=== PATIENT | male | born 1985 | race African-American/Black ===

== ENCOUNTER 2021-03-05 08:22 | Emergency (ER) | payer OTHER ==
[2021-03-05 08:42] VITALS: BMI 34.4
[2021-03-05] MEDS ORDERED: FAMOTIDINE 20 MG/50 ML IVPB 20 MG/50 ML MG IVPB ONE ×2 (08:53→09:04)
[2021-03-05] MEDS ORDERED: ACETAMINOPHEN 1000 MG/100 ML VIAL IVPB ONE (08:53)
[2021-03-05] MEDS ORDERED: MAG HYDROX/AL HYDROX/SIMETH -MYLANTA- ORAL SUSPENSION PO ONE (08:53)
[2021-03-05] MEDS ORDERED: SODIUM CHLORIDE 0.9% 1000 ML INFUS.BAG IV ONE ×2 (08:53→09:38)
[2021-03-05] MEDS ORDERED: ACETAMINOPHEN INJECTION 100 ML IVPB ONE (09:04)
[2021-03-05] MEDS ORDERED: MAG HYDROX/AL HYDROX/SIMETH 30 ML UNIT-DOSE CUP ONE (09:04)
[2021-03-05 09:36] LABS: BASO % 5.1 % (0-2.0); EOS % 0.6 % (0-4.5); HEMOGLOBIN 15.8 GM/dL (11.7-16.9); LYMPH % 21.4 % (8-40); MCH 30.3 pg (25.7-33.7); MCHC 34.3 g/dl (32.0-35.9); MEAN CELL VOLUME 88.4 fl (80-96); MEAN PLT VOLUME 8.8 fl (7.5-11.1); MONO % 6.8 % (3.8-10.2); NEUT % 66.1 % (42.8-82.8); PLATELET COUNT 233 10^3/uL (134-434); RDW 14.3 % (11.9-15.9)
[2021-03-05] MEDS ORDERED: ONDANSETRON 4 MG/2 ML VIAL IVPUSH ONE (09:37)
[2021-03-05] MEDS ORDERED: ONDANSETRON 4 MG/2 ML VIAL ONE (09:39)
[2021-03-05 09:46] LABS: INR 1.26 (0.83-1.09); PROTHROMBIN TIME (PATIENT) 14.1 SEC (9.7-13.0)
[2021-03-05 09:48] LABS: ACTIVATED PTT 31.3 SECONDS (25.2-36.5)
[2021-03-05 09:51] LABS: CHLORIDE 99 mmol/L (98-107); SODIUM 135 mmol/L (136-145)
[2021-03-05 09:53] LABS: ALBUMIN 4.3 g/dl (3.4-5.0); ANION GAP 9 MMOL/L (8-16); CALCIUM 8.5 mg/dL (8.5-10.1); CO2 27 mmol/L (21-32); GLUCOSE,RANDOM 175 mg/dL (74-106); LIPASE 148 U/L (73-393)
[2021-03-05 09:54] LABS: BLOOD UREA NITROGEN 13.7 mg/dL (7-18)
[2021-03-05 09:56] LABS: CREATININE 1.1 mg/dL (0.55-1.3); SGPT/ALT 155 U/L (13-61)
[2021-03-05 09:57] LABS: SGOT/AST 181 U/L (15-37); TOT PROT 8.3 g/dl (6.4-8.2)
[2021-03-05 09:59] LABS: ALK PHOS 130 U/L (45-117)
[2021-03-05 11:50] LABS: ANISOCYTOSIS 0; HELMET CELLS 0; HOWELL-JOLLY BODIES 0; MACROCYTOSIS 0; OVALOCYTE 0; PLATELET ESTIMATE NORMAL; ROULEAU 0; SICKELED CELLS 0; TARGET CELLS 0; TEAR DROP CELLS 0; TOXIC GRANULATION 0
[2021-03-05 14:22] VITALS: BP 130/88; PULSE 87; TEMP 98.9
== END 2021-03-05 14:29 | disposition home or self-care (01) ==
LOC: JER 08:22
PROC: 3E0333Z Introduction of Anti-inflammatory into Peripheral Vein, Percutaneous Approach (ICD-10-PCS; principal; 2021-03-05)
PROC: 3E033GC Introduction of Other Therapeutic Substance into Peripheral Vein, Percutaneous Approach (ICD-10-PCS; 2021-03-05)
PROC: 3E033GC Introduction of Other Therapeutic Substance into Peripheral Vein, Percutaneous Approach (ICD-10-PCS; 2021-03-05)
DX: K62.5 Hemorrhage of anus and rectum (principal); K64.9 Unspecified hemorrhoids; R10.9 Unspecified abdominal pain; R94.5 Abnormal results of liver function studies
CPT/HCPCS: 36415; 71045-TC-FY; 76705-TC; 80053; 80307; 82272; 83690; 84484; 85025; 85610; 85730; 86708; 86803; 86850; 86900; 86901; 87340; 87517; 93005; 93010; 99285-25; J0131

== ENCOUNTER 2021-06-17 05:11 | Emergency (ER) | payer OTHER ==
[2021-06-17 05:20] VITALS: BMI 36.0
[2021-06-17] MEDS ORDERED: SODIUM CHLORIDE 0.9% 500 ML INFUS.BAG IV ONE (05:36)
[2021-06-17] MEDS ORDERED: FAMOTIDINE 20 MG/50 ML IVPB 20 MG/50 ML MG IVPB ONE ×2 (05:36→05:43)
[2021-06-17] MEDS ORDERED: ONDANSETRON 4 MG/2 ML VIAL IVPUSH ONE (05:36)
[2021-06-17] MEDS ORDERED: ONDANSETRON 4 MG/2 ML VIAL ONE (05:42)
[2021-06-17 06:36] VITALS: TEMP 99.4
[2021-06-17] MEDS ORDERED: MAG HYDROX/AL HYDROX/SIMETH 30 ML UNIT-DOSE CUP PO ONE (06:52)
[2021-06-17 06:57] LABS: BASO % 3.2 % (0-2.0); EOS % 0.9 % (0-4.5); HEMATOCRIT 43.9 % (35.4-49); HEMOGLOBIN 14.7 GM/dL (11.7-16.9); LYMPH % 35.1 % (8-40); MCHC 33.5 g/dl (32.0-35.9); MEAN CELL VOLUME 89.6 fl (80-96); MEAN PLT VOLUME 7.8 fl (7.5-11.1); MONO % 8.4 % (3.8-10.2); NEUT % 52.4 % (42.8-82.8); PLATELET COUNT 238 10^3/uL (134-434); RDW 14.5 % (11.9-15.9); WHITE BLOOD COUNT 4.7 K/mm3 (4.0-10.0)
[2021-06-17] MEDS ORDERED: MAG HYDROX/AL HYDROX/SIMETH 30 ML UNIT-DOSE CUP ONE (06:58)
[2021-06-17 07:10] LABS: ALBUMIN 4.2 g/dl (3.4-5.0); CALCIUM 9.1 mg/dL (8.5-10.1)
[2021-06-17 07:11] LABS: BLOOD UREA NITROGEN 8.4 mg/dL (7-18); MAGNESIUM 1.9 mg/dL (1.8-2.4)
[2021-06-17 07:14] LABS: CREATININE 0.9 mg/dL (0.55-1.3)
[2021-06-17 07:15] LABS: TOT PROT 7.9 g/dl (6.4-8.2)
[2021-06-17] MEDS ORDERED: FAMOTIDINE 10 MG TABLET PO ONE (09:26)
[2021-06-17] MEDS ORDERED: ACETAMINOPHEN 500 MG TABLET (FP) PO ONE (09:26)
[2021-06-17] MEDS ORDERED: ACETAMINOPHEN 325 MG TABLET (FP) ONE (09:31)
[2021-06-17] MEDS ORDERED: FAMOTIDINE 10 MG TABLET ONE (09:31)
[2021-06-17 10:56] VITALS: BP 132/71; PULSE 91
== END 2021-06-17 10:56 | disposition home or self-care (01) ==
LOC: JER 05:11
PROC: 3E033GC Introduction of Other Therapeutic Substance into Peripheral Vein, Percutaneous Approach (ICD-10-PCS; principal; 2021-06-17)
DX: R11.2 Nausea with vomiting, unspecified (principal); R10.84 Generalized abdominal pain
CPT/HCPCS: 36415; 71046-TC-FY; 80053; 82272; 83690; 83735; 84484; 85025; 93005; 93010; 99285-25

== ENCOUNTER 2021-08-01 11:43 | Emergency (ER) | payer OTHER ==
[2021-08-01 11:53] VITALS: BMI 30.9
[2021-08-01] MEDS ORDERED: SODIUM CHLORIDE 1,000 ML IV STA (12:42)
[2021-08-01] MEDS ORDERED: METOCLOPRAMIDE HCL INJECTION 10 MG/2 ML VIAL IVPB ONE (12:42)
[2021-08-01] MEDS ORDERED: FAMOTIDINE 20 MG/50 ML IVPB 50 ML IVPB ONE (12:42)
[2021-08-01] MEDS ORDERED: ACETAMINOPHEN 1000 MG/100 ML BAG IVPB ONE (12:42)
[2021-08-01] MEDS ORDERED: METOCLOPRAMIDE HCL INJECTION 10 MG/2 ML VIAL ONE (13:14)
[2021-08-01] MEDS ORDERED: ACETAMINOPHEN INJECTION 100 ML IVPB ONE (13:14)
[2021-08-01] MEDS ORDERED: FAMOTIDINE/PF 20 MG/2 ML VIAL IVPB ONE (14:00)
[2021-08-01 14:36] LABS: BASO % 3.3 % (0-2.0); LYMPH % 42.4 % (8-40); MCH 30.9 pg (25.7-33.7); MCHC 33.4 g/dl (32.0-35.9); MEAN CELL VOLUME 92.4 fl (80-96); MEAN PLT VOLUME 8.1 fl (7.5-11.1); MONO % 6.2 % (3.8-10.2); NEUT % 47.1 % (42.8-82.8); PLATELET COUNT 217 10^3/uL (134-434); RBC 5.19 M/mm3 (4.00-5.60); RDW 14.9 % (11.9-15.9); WHITE BLOOD COUNT 4.9 K/mm3 (4.0-10.0)
[2021-08-01 14:42] LABS: CALCIUM 8.3 mg/dL (8.5-10.1)
[2021-08-01 14:43] LABS: ALBUMIN 3.9 g/dl (3.4-5.0); BLOOD UREA NITROGEN 14.2 mg/dL (7-18)
[2021-08-01] MEDS ORDERED: FAMOTIDINE 10 MG/ML VIAL IVPB ONE (14:44)
[2021-08-01 14:46] LABS: CREATININE 0.9 mg/dL (0.55-1.3)
[2021-08-01 14:47] LABS: BILIRUBIN,TOTAL 0.7 mg/dL (0.2-1)
[2021-08-01 14:48] LABS: TOT PROT 8.1 g/dl (6.4-8.2)
[2021-08-01 17:55] VITALS: BP 123/90; PULSE 72; TEMP 98
== END 2021-08-01 17:50 | disposition home or self-care (01) ==
LOC: JER 11:43
PROC: 3E0333Z Introduction of Anti-inflammatory into Peripheral Vein, Percutaneous Approach (ICD-10-PCS; principal; 2021-08-01)
PROC: 3E033GC Introduction of Other Therapeutic Substance into Peripheral Vein, Percutaneous Approach (ICD-10-PCS; 2021-08-01)
PROC: 3E033GC Introduction of Other Therapeutic Substance into Peripheral Vein, Percutaneous Approach (ICD-10-PCS; 2021-08-01)
PROC: 3E033GC Introduction of Other Therapeutic Substance into Peripheral Vein, Percutaneous Approach (ICD-10-PCS; 2021-08-01)
PROC: 3E0337Z Introduction of Electrolytic and Water Balance Substance into Peripheral Vein, Percutaneous Approach (ICD-10-PCS; 2021-08-01)
DX: A09 Infectious gastroenteritis and colitis, unspecified (principal); R10.84 Generalized abdominal pain; R11.2 Nausea with vomiting, unspecified
CPT/HCPCS: 36415; 76705-TC; 80053; 83690; 85025; 93005; 93010; 99285-25

== ENCOUNTER 2021-11-04 08:19 | Emergency (ER) | payer OTHER ==
[2021-11-04 08:37] VITALS: TEMP 98.3; BMI 34.8
[2021-11-04] MEDS ORDERED: ONDANSETRON 4 MG/2 ML VIAL IVPUSH ONE (09:21)
[2021-11-04] MEDS ORDERED: SODIUM CHLORIDE 1,000 ML IV STA (09:21)
[2021-11-04] MEDS ORDERED: PANTOPRAZOLE SODIUM 40 MG VIAL IVPB ONE (09:21)
[2021-11-04] MEDS ORDERED: MAG HYDROX/AL HYDROX/SIMETH 30 ML UNIT-DOSE CUP PO ONE (09:22)
[2021-11-04] MEDS ORDERED: MAG HYDROX/AL HYDROX/SIMETH 30 ML UNIT-DOSE CUP ONE (09:41)
[2021-11-04] MEDS ORDERED: PANTOPRAZOLE SODIUM 40 MG VIAL ONE (09:41)
[2021-11-04] MEDS ORDERED: ONDANSETRON 4 MG/2 ML VIAL ONE (09:41)
[2021-11-04 09:53] LABS: BASO % 3.5 % (0-2.0); EOS % 1.2 % (0-4.5); HEMOGLOBIN 14.2 GM/dL (11.7-16.9); MCHC 34.6 g/dl (32.0-35.9); MEAN CELL VOLUME 92.6 fl (80-96); MEAN PLT VOLUME 7.3 fl (7.5-11.1); MONO % 6.5 % (3.8-10.2); NEUT % 66.8 % (42.8-82.8); PLATELET COUNT 207 10^3/uL (134-434); RBC 4.43 M/mm3 (4.00-5.60); RDW 14.8 % (11.9-15.9); WHITE BLOOD COUNT 7.9 K/mm3 (4.0-10.0)
[2021-11-04 10:00] LABS: INR 1.09 (0.83-1.09); PROTHROMBIN TIME (PATIENT) 12.6 SEC (9.7-13.0)
[2021-11-04 10:02] LABS: ACTIVATED PTT 33.2 SECONDS (25.2-36.5)
[2021-11-04 10:20] LABS: CHLORIDE 99 mmol/L (98-107); SODIUM 137 mmol/L (136-145)
[2021-11-04 10:22] LABS: CALCIUM 9.6 mg/dL (8.5-10.1)
[2021-11-04 10:23] LABS: ALBUMIN 4.5 g/dl (3.4-5.0); ANION GAP 10 MMOL/L (8-16); BLOOD UREA NITROGEN 10.5 mg/dL (7-18); CO2 28 mmol/L (21-32); GLUCOSE,RANDOM 163 mg/dL (74-106); LIPASE 214 U/L (73-393)
[2021-11-04 10:25] LABS: SGPT/ALT 107 U/L (13-61)
[2021-11-04 10:26] LABS: SGOT/AST 220 U/L (15-37)
[2021-11-04 10:27] LABS: BILIRUBIN,TOTAL 1.5 mg/dL (0.2-1); TOT PROT 8.7 g/dl (6.4-8.2)
[2021-11-04 10:29] LABS: ALK PHOS 106 U/L (45-117)
[2021-11-04 10:34] LABS: EPI CELLS 7 /uL (0-25.1); HYALINE CASTS 9 /uL (0-3.1); PH,URINE 5.5 (5.0-8.0); URINE APPEARANCE CLEAR; URINE BILIRUBIN 1+ (NEGATIVE); URINE COLOR ORANGE; URINE GLUCOSE (UA) NEGATIVE (NEGATIVE); URINE KETONE TRACE (NEGATIVE); URINE LEUK ESTERASE TRACE (NEGATIVE); URINE NITRITE POSITIVE (NEGATIVE); URINE PROTEIN 1+ (NEGATIVE); URINE RBC 4 /uL (0-23.9); URINE WBC 8 /uL (0-25.8)
[2021-11-04 12:12] LABS: URINE BACTERIA 25.7 /uL (0-1359)
[2021-11-04 14:28] VITALS: BP 120/80; PULSE 82; RESP 18
== END 2021-11-04 14:29 | disposition home or self-care (01) ==
LOC: JER 08:19
PROC: 3E033GC Introduction of Other Therapeutic Substance into Peripheral Vein, Percutaneous Approach (ICD-10-PCS; principal; 2021-11-04)
PROC: 3E033GC Introduction of Other Therapeutic Substance into Peripheral Vein, Percutaneous Approach (ICD-10-PCS; 2021-11-04)
PROC: 3E0337Z Introduction of Electrolytic and Water Balance Substance into Peripheral Vein, Percutaneous Approach (ICD-10-PCS; 2021-11-04)
DX: R19.7 Diarrhea, unspecified (principal); R11.2 Nausea with vomiting, unspecified
CPT/HCPCS: 36415; 70450-TC; 71046-TC-FY; 74177-TC; 76705-TC; 80053; 81003; 82272; 83690; 83735; 84484; 85025; 85610; 85730; 93005; 93010; 99285-25; Q9967

== ENCOUNTER 2021-11-25 22:10 | Inpatient (IN) | payer OTHER ==
[2021-11-25] MEDS ORDERED: SODIUM CHLORIDE 0.9% 500 ML INFUS.BAG IV ONE (23:12)
[2021-11-25] MEDS ORDERED: ONDANSETRON 4 MG/2 ML VIAL IVPUSH ONE (23:27)
[2021-11-25] MEDS ORDERED: ACETAMINOPHEN 1000 MG/100 ML BAG IVPB ONE (23:27)
[2021-11-25] MEDS ORDERED: FAMOTIDINE 20 MG/50 ML IVPB 20 MG/50 ML MG IVPB ONE (23:27)
[2021-11-26] MEDS ORDERED: ONDANSETRON 4 MG/2 ML VIAL ONE (00:18)
[2021-11-26] MEDS ORDERED: FAMOTIDINE 20 MG/50 ML IVPB 20 MG/50 ML MG IVPB ONE (00:18)
[2021-11-26 00:49] LABS: BASO % 2.4 % (0-2.0); EOS % 0.8 % (0-4.5); HEMATOCRIT 45.5 % (35.4-49); HEMOGLOBIN 15.6 GM/dL (11.7-16.9); LYMPH % 31.6 % (8-40); MCH 31.7 pg (25.7-33.7); MCHC 34.2 g/dl (32.0-35.9); MEAN CELL VOLUME 92.7 fl (80-96); MEAN PLT VOLUME 7.6 fl (7.5-11.1); MONO % 5.4 % (3.8-10.2); NEUT % 59.8 % (42.8-82.8); PLATELET COUNT 258 10^3/uL (134-434); RBC 4.91 M/mm3 (4.00-5.60); RDW 14.7 % (11.9-15.9); WHITE BLOOD COUNT 9.6 K/mm3 (4.0-10.0)
[2021-11-26 00:56] LABS: INR 1.13 (0.83-1.09)
[2021-11-26 00:59] LABS: ACTIVATED PTT 35.7 SECONDS (25.2-36.5)
[2021-11-26 01:11] LABS: CALCIUM 9.4 mg/dL (8.5-10.1)
[2021-11-26 01:12] LABS: ALBUMIN 4.6 g/dl (3.4-5.0); BLOOD UREA NITROGEN 9.4 mg/dL (7-18)
[2021-11-26 01:15] LABS: CREATININE 0.8 mg/dL (0.55-1.3)
[2021-11-26 01:16] LABS: BILIRUBIN,TOTAL 0.4 mg/dL (0.2-1)
[2021-11-26 01:37] LABS: LACTIC ACID 2.6 mmol/L (0.4-2.0)
[2021-11-26] MEDS ORDERED: SODIUM CHLORIDE 0.9% 500 ML INFUS.BAG IV ONE (01:38)
[2021-11-26] MEDS ORDERED: ACETAMINOPHEN 325 MG TABLET (FP) PO PRN (03:15)
[2021-11-26] MEDS ORDERED: ONDANSETRON *ODT* 4 MG TABLET SL PRN (04:08)
[2021-11-26 05:29] LABS: LACTIC ACID 2.1 mmol/L (0.4-2.0)
[2021-11-26 05:39] LABS: PH,URINE 6.5 (5.0-8.0); URINE APPEARANCE CLEAR; URINE BILIRUBIN NEGATIVE (NEGATIVE); URINE COLOR YELLOW; URINE GLUCOSE (UA) NEGATIVE (NEGATIVE); URINE KETONE NEGATIVE (NEGATIVE); URINE LEUK ESTERASE NEGATIVE (NEGATIVE); URINE NITRITE NEGATIVE (NEGATIVE); URINE PROTEIN NEGATIVE (NEGATIVE); URINE UROBILINOGEN 0.2 mg/dL (0.2-1.0)
[2021-11-26] MEDS: MAG HYDROX/AL HYDROX/SIMETH 30 ML UNIT-DOSE CUP PO PRN (09:25)
[2021-11-26] MEDS: PANTOPRAZOLE 20 MG TABLET PO SCH (09:25)
[2021-11-26] MEDS ORDERED: THIAMINE HCL 200 MG/2 ML VIAL IVPB ONE (13:57)
[2021-11-26] MEDS: chlordiazePOXIDE HCL 10 MG CAPSULE PO SCH ×2 (14:27→21:41)
[2021-11-26] MEDS: BENZOCAINE 28 GM HEMORRHOIDAL OINTMENT TP PRN (14:28)
[2021-11-26] MEDS: D5-1/2NS+10 MEQ KCL - 10 MEQ/1,000 ML INFUS.BAG IV SCH (14:30)
[2021-11-26 15:12] VITALS: BMI 33.8
[2021-11-26 17:30] LABS: BASO % 1.8 % (0-2.0); EOS % 0.5 % (0-4.5); HEMATOCRIT 39.1 % (35.4-49); LYMPH % 19.9 % (8-40); MCH 30.8 pg (25.7-33.7); MCHC 33.2 g/dl (32.0-35.9); MEAN CELL VOLUME 92.8 fl (80-96); MEAN PLT VOLUME 8.5 fl (7.5-11.1); NEUT % 72.8 % (42.8-82.8); PLATELET COUNT 153 10^3/uL (134-434); RBC 4.22 M/mm3 (4.00-5.60); RDW 14.1 % (11.9-15.9); WHITE BLOOD COUNT 6.6 K/mm3 (4.0-10.0)
[2021-11-26 17:59] LABS: ALBUMIN 3.9 g/dl (3.4-5.0); BLOOD UREA NITROGEN 7.1 mg/dL (7-18); CALCIUM 8.1 mg/dL (8.5-10.1)
[2021-11-26 18:02] LABS: CREATININE 0.7 mg/dL (0.55-1.3)
[2021-11-26 18:04] LABS: TOT PROT 7.4 g/dl (6.4-8.2)
[2021-11-26 20:25] VITALS: RESP 17
[2021-11-26] MEDS: PHENYLEPHRINE HCL/COCOA BUTTER SUPPOSITORY RC SCH (21:43)
[2021-11-26] MEDS: THIAMINE HCL 100 MG TABLET (FP) PO SCH (21:43)
[2021-11-27] MEDS: D5-1/2NS+10 MEQ KCL - 10 MEQ/1,000 ML INFUS.BAG IV SCH ×2 (03:35→15:02)
[2021-11-27 05:31] VITALS: BP 125/78; PULSE 91; TEMP 98.5
[2021-11-27] MEDS: chlordiazePOXIDE HCL 10 MG CAPSULE PO SCH ×2 (06:41→15:02)
[2021-11-27] MEDS: THIAMINE HCL 100 MG TABLET (FP) PO SCH (09:38)
[2021-11-27] MEDS: MAG HYDROX/AL HYDROX/SIMETH 30 ML UNIT-DOSE CUP PO PRN (09:38)
[2021-11-27] MEDS: PHENYLEPHRINE HCL/COCOA BUTTER SUPPOSITORY RC SCH (09:38)
[2021-11-27] MEDS: PANTOPRAZOLE 20 MG TABLET PO SCH (09:38)
[2021-11-27] MEDS: BENZOCAINE 28 GM HEMORRHOIDAL OINTMENT TP PRN (09:39)
[2021-11-27 13:13] LABS: BASO % 1.8 % (0-2.0); EOS % 1.6 % (0-4.5); HEMATOCRIT 37.9 % (35.4-49); HEMOGLOBIN 12.7 GM/dL (11.7-16.9); LYMPH % 22.8 % (8-40); MCH 31.1 pg (25.7-33.7); MCHC 33.4 g/dl (32.0-35.9); MEAN PLT VOLUME 8.8 fl (7.5-11.1); MONO % 5.5 % (3.8-10.2); NEUT % 68.3 % (42.8-82.8); PLATELET COUNT 124 10^3/uL (134-434); RBC 4.08 M/mm3 (4.00-5.60); RDW 14.4 % (11.9-15.9); WHITE BLOOD COUNT 4.4 K/mm3 (4.0-10.0)
[2021-11-27 13:30] LABS: ALBUMIN 3.4 g/dl (3.4-5.0); BLOOD UREA NITROGEN 4.9 mg/dL (7-18); MAGNESIUM 1.9 mg/dL (1.8-2.4)
[2021-11-27 13:33] LABS: CREATININE 0.7 mg/dL (0.55-1.3)
[2021-11-27 13:35] LABS: BILIRUBIN,TOTAL 1.2 mg/dL (0.2-1); TOT PROT 6.7 g/dl (6.4-8.2)
== END 2021-11-27 18:05 | disposition home or self-care (01) | DRG 280 ==
LOC: JER 22:10 → JERBED 11-26 02:10 → J5S 11-26 07:45
PROVIDERS: ADMIT Internal Medicine; ATTEND Internal Medicine
DX: K70.10 Alcoholic hepatitis without ascites (principal); K62.5 Hemorrhage of anus and rectum; E87.2 Acidosis; R74.01 Elevation of levels of liver transaminase levels; I10 Essential (primary) hypertension; R16.0 Hepatomegaly, not elsewhere classified; F10.10 Alcohol abuse, uncomplicated; E78.5 Hyperlipidemia, unspecified; R11.2 Nausea with vomiting, unspecified; K64.9 Unspecified hemorrhoids; K76.0 Fatty (change of) liver, not elsewhere classified
CPT/HCPCS: 0241U-QW; 36415; 74177-TC; 80053; 81003; 83605; 83735; 85025; 85610; 85730; 86850; 86900; 86901; 87086; 93005; 93010; 99285-25; Q9967

== ENCOUNTER 2022-03-28 08:01 | Inpatient (IN) | payer OTHER ==
[2022-03-28] MEDS ORDERED: diazePAM 5 MG TABLET PO ONE (08:46)
[2022-03-28] MEDS ORDERED: diazePAM CARPU-JECT 10 MG/2 ML DISP.SYRIN IVPUSH ONE (09:31)
[2022-03-28] MEDS ORDERED: morphine CARPU-JECT 2 MG/1 ML DISP.SYRIN IVPUSH ONE (09:49)
[2022-03-28] MEDS ORDERED: diazePAM CARPU-JECT 10 MG/2 ML DISP.SYRIN ONE (10:47)
[2022-03-28 11:27] LABS: EOS % 1.1 % (0-4.5); HEMATOCRIT 31.4 % (35.4-49); HEMOGLOBIN 9.9 GM/dL (11.7-16.9); LYMPH % 20.6 % (8-40); MCH 27.4 pg (25.7-33.7); MCHC 31.5 g/dl (32.0-35.9); MEAN CELL VOLUME 86.9 fl (80-96); MEAN PLT VOLUME 8.3 fl (7.5-11.1); MONO % 9.4 % (3.8-10.2); NEUT % 65.9 % (42.8-82.8); PLATELET COUNT 100 10^3/uL (134-434); RBC 3.61 M/mm3 (4.00-5.60); RDW 18.7 % (11.9-15.9); WHITE BLOOD COUNT 4.8 K/mm3 (4.0-10.0)
[2022-03-28 11:33] LABS: INR 1.27 (0.83-1.09); PROTHROMBIN TIME (PATIENT) 14.6 SEC (9.7-13.0)
[2022-03-28 11:36] LABS: ACTIVATED PTT 38.5 SECONDS (25.2-36.5)
[2022-03-28 11:49] LABS: MAGNESIUM 1.8 mg/dL (1.8-2.4)
[2022-03-28 11:50] LABS: ALBUMIN 2.9 g/dl (3.4-5.0); BLOOD UREA NITROGEN 3.9 mg/dL (7-18); CALCIUM 8.2 mg/dL (8.5-10.1)
[2022-03-28 11:53] LABS: CREATININE 0.5 mg/dL (0.55-1.3)
[2022-03-28 11:55] LABS: TOT PROT 7.4 g/dl (6.4-8.2)
[2022-03-28] MEDS ORDERED: PANTOPRAZOLE 40 MG TABLET PO ONE ×2 (13:42→14:22)
[2022-03-28] MEDS ORDERED: SODIUM CHLORIDE 1,000 ML IV SCH (13:45)
[2022-03-28] MEDS ORDERED: diazePAM 5 MG TABLET PO PRN (14:05)
[2022-03-28] MEDS ORDERED: LORazepam 1 MG TABLET PO PRN (14:05)
[2022-03-28] MEDS ORDERED: NAPH,MB-DB/K PH,MBDB POWDER PACKET ONE (14:22)
[2022-03-28] MEDS: LACTATED RINGERS SOLUTION 1,000 ML/1,000 ML INFUS.BAG IV SCH (14:42)
[2022-03-28] MEDS: NAPH,MB-DB/K PH,MBDB POWDER PACKET PO SCH (14:43)
[2022-03-28] MEDS ORDERED: LORazepam 1 MG TABLET ONE (15:58)
[2022-03-28] MEDS: LORazepam 2 MG TABLET PO SCH (16:00)
[2022-03-28 16:30] LABS: PHOSPHOROUS 2.1 mg/dL (2.5-4.9)
[2022-03-28 21:02] VITALS: BMI 32.2
[2022-03-28] MEDS ORDERED: ACETAMINOPHEN 325 MG TABLET (FP) PO PRN (21:18)
[2022-03-28] MEDS ORDERED: ACETAMINOPHEN 1000 MG/100 ML BAG IVPB PRN (21:18)
[2022-03-29] MEDS: NAPH,MB-DB/K PH,MBDB POWDER PACKET PO SCH ×2 (00:44→11:42)
[2022-03-29] MEDS: LORazepam 2 MG TABLET PO SCH (01:48)
[2022-03-29] MEDS: LACTATED RINGERS SOLUTION 1,000 ML/1,000 ML INFUS.BAG IV SCH ×2 (06:05→15:31)
[2022-03-29 09:39] LABS: HEMATOCRIT 32.6 % (35.4-49); HEMOGLOBIN 10.4 GM/dL (11.7-16.9); MCH 27.5 pg (25.7-33.7); MCHC 31.9 g/dl (32.0-35.9); MEAN CELL VOLUME 86.4 fl (80-96); MEAN PLT VOLUME 8.5 fl (7.5-11.1); PLATELET COUNT 97 10^3/uL (134-434); RBC 3.77 M/mm3 (4.00-5.60); RDW 18.7 % (11.9-15.9); WHITE BLOOD COUNT 4.9 K/mm3 (4.0-10.0)
[2022-03-29] MEDS ORDERED: MAG HYDROX/AL HYDROX/SIMETH -MYLANTA- ORAL SUSPENSION PO SCH (09:45)
[2022-03-29] MEDS ORDERED: PHYTONADIONE 10 MG/1 ML AMP IVPB ONE (09:53)
[2022-03-29] MEDS ORDERED: LOSARTAN POTASSIUM 50 MG TABLET PO SCH (10:00)
[2022-03-29] MEDS ORDERED: THIAMINE HCL 100 MG TABLET (FP) PO SCH (10:00)
[2022-03-29] MEDS ORDERED: PANTOPRAZOLE 20 MG TABLET PO SCH (10:00)
[2022-03-29] MEDS ORDERED: ONDANSETRON *ODT* 4 MG TABLET SL SCH (10:00)
[2022-03-29] MEDS ORDERED: ENOXAPARIN NA (PORCINE) 40 MG/0.4 ML DISP.SYRIN SQ SCH (10:00)
[2022-03-29 10:26] LABS: CALCIUM 8.2 mg/dL (8.5-10.1)
[2022-03-29 10:27] LABS: ALBUMIN 2.6 g/dl (3.4-5.0); BLOOD UREA NITROGEN 7.2 mg/dL (7-18); MAGNESIUM 1.7 mg/dL (1.8-2.4)
[2022-03-29 10:29] LABS: BILIRUBIN,DIRECT 1.7 mg/dL (0.0-0.2)
[2022-03-29 10:30] LABS: CREATININE 0.4 mg/dL (0.55-1.3); PHOSPHOROUS 1.8 mg/dL (2.5-4.9)
[2022-03-29 10:31] LABS: BILIRUBIN,TOTAL 3.4 mg/dL (0.2-1); TOT PROT 6.9 g/dl (6.4-8.2)
[2022-03-29 10:58] LABS: ANISOCYTOSIS 0; HELMET CELLS 0; HOWELL-JOLLY BODIES 0; MACROCYTOSIS 0; OVALOCYTE 0; ROULEAU 0; SICKELED CELLS 0; TARGET CELLS 0; TEAR DROP CELLS 0; TOXIC GRANULATION 0
[2022-03-29 11:12] LABS: BILIRUBIN,DIRECT 1.6 mg/dL (0.0-0.2)
[2022-03-29 15:41] VITALS: BP 117/89; PULSE 99; RESP 18; TEMP 99
[2022-03-29] MEDS ORDERED: LORazepam 1 MG TABLET PO SCH (23:45)
[2022-03-30] MEDS ORDERED: LORazepam 1 MG TABLET PO SCH (05:00)
[2022-03-31] MEDS ORDERED: LORazepam 0.5 MG TABLET PO PRN
[2022-03-31] MEDS ORDERED: LORazepam 0.5 MG TABLET PO SCH (05:00)
[2022-04-01] MEDS ORDERED: LORazepam 0.5 MG TABLET PO ONE (05:00)
== END 2022-03-29 15:49 | disposition left against medical advice (07) | DRG 280 ==
LOC: JER 08:01 → JERBED 12:20 → J5S 19:54
PROVIDERS: ADMIT Internal Medicine; ATTEND Internal Medicine
DX: K70.10 Alcoholic hepatitis without ascites (principal); I10 Essential (primary) hypertension; E78.5 Hyperlipidemia, unspecified; R00.0 Tachycardia, unspecified; K76.0 Fatty (change of) liver, not elsewhere classified; D69.6 Thrombocytopenia, unspecified; F10.120 Alcohol abuse with intoxication, uncomplicated; K70.9 Alcoholic liver disease, unspecified; R74.01 Elevation of levels of liver transaminase levels; D64.9 Anemia, unspecified; Z53.29 Procedure and treatment not carried out because of patient's decision for other reasons
CPT/HCPCS: 0241U-QW; 36415; 74176-TC; 76705-TC; 80053; 80076; 80307; 82140; 82248; 82272; 82550; 82607; 82728; 82746; 83540; 83550; 83690; 83735; 84100; 85025; 85610; 85730; 86850; 86900; 86901; 87350; 87522; 93005; 93010; 99283-25; 99291; Q0162

== ENCOUNTER 2022-05-02 08:04 | Inpatient (IN) | payer OTHER ==
[2022-05-02 08:16] VITALS: BMI 33.8
[2022-05-02] MEDS ORDERED: MAGNESIUM SULF 50% (8.12 MEQ/2 ML-1 GM VIAL) IVPB ONE (08:58)
[2022-05-02] MEDS ORDERED: MAGNESIUM SULFATE IN WATER 2 GM/50 ML IVPB IVPB ONE (09:18)
[2022-05-02] MEDS ORDERED: FAMOTIDINE 20 MG/50 ML IVPB 20 MG/50 ML MG IVPB ONE ×2 (09:31→09:38)
[2022-05-02] MEDS ORDERED: TRIMETHOBENZAMIDE HCL 200MG/2ML INJ IM ONE ×2 (09:31→09:38)
[2022-05-02] MEDS ORDERED: LORazepam 1 MG TABLET PO ONE ×3 (09:31→22:42)
[2022-05-02] MEDS ORDERED: LORazepam 1 MG TABLET ONE (09:38)
[2022-05-02 09:44] LABS: BASO % 2.8 % (0-2.0); EOS % 0.6 % (0-4.5); HEMATOCRIT 33.9 % (35.4-49); LYMPH % 18.5 % (8-40); MCH 29.4 pg (25.7-33.7); MCHC 32.5 g/dl (32.0-35.9); MEAN CELL VOLUME 90.6 fl (80-96); MEAN PLT VOLUME 8.2 fl (7.5-11.1); MONO % 10.1 % (3.8-10.2); PLATELET COUNT 103 10^3/uL (134-434); RBC 3.75 M/mm3 (4.00-5.60); RDW 20.2 % (11.9-15.9); WHITE BLOOD COUNT 7.2 K/mm3 (4.0-10.0)
[2022-05-02 09:52] LABS: INR 1.31 (0.83-1.09); PROTHROMBIN TIME (PATIENT) 15.2 SEC (9.7-13.0)
[2022-05-02 09:54] LABS: ACTIVATED PTT 38.6 SECONDS (25.2-36.5)
[2022-05-02 10:09] LABS: ALBUMIN 2.6 g/dl (3.4-5.0); BLOOD UREA NITROGEN 5.7 mg/dL (7-18); MAGNESIUM 1.9 mg/dL (1.8-2.4)
[2022-05-02 10:12] LABS: BILIRUBIN,DIRECT 2.5 mg/dL (0.0-0.2); CREATININE 0.5 mg/dL (0.55-1.3)
[2022-05-02 10:13] LABS: BILIRUBIN,TOTAL 3.2 mg/dL (0.2-1)
[2022-05-02 10:14] LABS: TOT PROT 8.2 g/dl (6.4-8.2)
[2022-05-02] MEDS ORDERED: FOLIC ACID 1 MG TABLET (FP) PO ONE (14:38)
[2022-05-02] MEDS ORDERED: LORazepam 1 MG TABLET PO PRN ×2 (14:38→15:23)
[2022-05-02] MEDS ORDERED: THIAMINE HCL 200 MG/2 ML VIAL IVPB ONE (14:38)
[2022-05-02] MEDS ORDERED: LACTATED RINGERS SOLUTION 1,000 ML/1,000 ML INFUS.BAG IV SCH (15:45)
[2022-05-02] MEDS ORDERED: FOLIC ACID 1 MG TABLET (FP) ONE ×2 (16:29→16:39)
[2022-05-02] MEDS ORDERED: THIAMINE HCL 200 MG/2 ML VIAL ONE (16:29)
[2022-05-02] MEDS: LORazepam 1 MG TABLET PO SCH (21:16)
[2022-05-02] MEDS: HEPARIN NA (PORCINE) 5,000 UNITS/ML 1ML VIAL SQ SCH (21:16)
[2022-05-02] MEDS: MAG HYDROX/AL HYDROX/SIMETH 30 ML UNIT-DOSE CUP PO SCH (21:16)
[2022-05-03] MEDS ORDERED: LORazepam 2 MG/ML SDV VIAL IVPUSH ONE (00:54)
[2022-05-03] MEDS: HEPARIN NA (PORCINE) 5,000 UNITS/ML 1ML VIAL SQ SCH ×3 (05:40→22:45)
[2022-05-03] MEDS: LORazepam 1 MG TABLET PO SCH ×2 (10:01→22:45)
[2022-05-03] MEDS: PANTOPRAZOLE 40 MG TABLET PO SCH (10:02)
[2022-05-03] MEDS: METOPROLOL TARTRATE 25 MG TABLET (FP) PO SCH ×2 (10:02→22:52)
[2022-05-03] MEDS: MAG HYDROX/AL HYDROX/SIMETH 30 ML UNIT-DOSE CUP PO SCH ×2 (10:02→22:45)
[2022-05-03] MEDS: THIAMINE HCL 200 MG/2 ML VIAL IVPB SCH (10:07)
[2022-05-03 11:05] LABS: BASO % 2.3 % (0-2.0); EOS % 0.8 % (0-4.5); HEMOGLOBIN 11.1 GM/dL (11.7-16.9); LYMPH % 23.2 % (8-40); MCH 29.7 pg (25.7-33.7); MCHC 32.6 g/dl (32.0-35.9); MEAN PLT VOLUME 8.4 fl (7.5-11.1); MONO % 8.8 % (3.8-10.2); NEUT % 64.9 % (42.8-82.8); PLATELET COUNT 95 10^3/uL (134-434); RBC 3.73 M/mm3 (4.00-5.60); RDW 20.4 % (11.9-15.9); WHITE BLOOD COUNT 6.6 K/mm3 (4.0-10.0)
[2022-05-03 11:12] LABS: INR 1.46 (0.83-1.09); PROTHROMBIN TIME (PATIENT) 16.9 SEC (9.7-13.0)
[2022-05-03 11:36] LABS: ALBUMIN 2.6 g/dl (3.4-5.0)
[2022-05-03 11:39] LABS: ALBUMIN 2.5 g/dl (3.4-5.0); BILIRUBIN,DIRECT 3.4 mg/dL (0.0-0.2); BLOOD UREA NITROGEN 7.6 mg/dL (7-18); CREATININE 0.6 mg/dL (0.55-1.3)
[2022-05-03 11:40] LABS: BILIRUBIN,TOTAL 4.8 mg/dL (0.2-1); CALCIUM 7.6 mg/dL (8.5-10.1); TOT PROT 7.6 g/dl (6.4-8.2); TOT PROT 7.8 g/dl (6.4-8.2)
[2022-05-03 11:41] LABS: BILIRUBIN,TOTAL 4.7 mg/dL (0.2-1)
[2022-05-03] MEDS: ACETAMINOPHEN 500 MG TABLET (FP) PO ONE ×2 (12:47→13:08)
[2022-05-03] MEDS: D5-NS + 20 MEQ KCL - 20 MEQ/1,000 ML INFUS.BAG IV SCH (14:27)
[2022-05-03] MEDS: PIPERACILLIN/TAZOB 3.375 GM 3.375 GM in DEXTROSE 5%-WATER - 50 ML IVPB SCH ×2 (14:29→18:16)
[2022-05-04] MEDS: PIPERACILLIN/TAZOB 3.375 GM 3.375 GM in DEXTROSE 5%-WATER - 50 ML IVPB SCH ×2 (02:02→09:26)
[2022-05-04] MEDS: HEPARIN NA (PORCINE) 5,000 UNITS/ML 1ML VIAL SQ SCH (05:33)
[2022-05-04] MEDS: LORazepam 1 MG TABLET PO SCH ×2 (09:24→21:16)
[2022-05-04] MEDS: POLYETHYLENE GLYCOL (HEALTHYLAX) 3350 17 GM PACKET PO SCH ×2 (09:24→09:30)
[2022-05-04] MEDS: MAG HYDROX/AL HYDROX/SIMETH 30 ML UNIT-DOSE CUP PO SCH ×2 (09:26→21:16)
[2022-05-04] MEDS: METOPROLOL TARTRATE 25 MG TABLET (FP) PO SCH ×2 (09:26→21:15)
[2022-05-04] MEDS: PANTOPRAZOLE 40 MG TABLET PO SCH (09:26)
[2022-05-04] MEDS: THIAMINE HCL 200 MG/2 ML VIAL IVPB SCH (10:56)
[2022-05-04 11:19] LABS: INR 1.8 (0.83-1.09); PROTHROMBIN TIME (PATIENT) 20.8 SEC (9.7-13.0)
[2022-05-04 11:20] LABS: BASO % 2.2 % (0-2.0); EOS % 2.4 % (0-4.5); HEMATOCRIT 29.9 % (35.4-49); HEMOGLOBIN 9.7 GM/dL (11.7-16.9); LYMPH % 18.7 % (8-40); MCH 29.5 pg (25.7-33.7); MCHC 32.2 g/dl (32.0-35.9); MEAN CELL VOLUME 91.6 fl (80-96); MEAN PLT VOLUME 8.3 fl (7.5-11.1); MONO % 9.9 % (3.8-10.2); NEUT % 66.8 % (42.8-82.8); PLATELET COUNT 89 10^3/uL (134-434); RBC 3.27 M/mm3 (4.00-5.60); RDW 20.2 % (11.9-15.9); WHITE BLOOD COUNT 6.4 K/mm3 (4.0-10.0)
[2022-05-04 11:30] LABS: BLOOD UREA NITROGEN 4.2 mg/dL (7-18); CALCIUM 7.2 mg/dL (8.5-10.1)
[2022-05-04 11:31] LABS: ALBUMIN 2.2 g/dl (3.4-5.0)
[2022-05-04 11:33] LABS: BILIRUBIN,DIRECT 3.6 mg/dL (0.0-0.2)
[2022-05-04 11:34] LABS: CREATININE 0.6 mg/dL (0.55-1.3)
[2022-05-04 11:35] LABS: BILIRUBIN,TOTAL 4.7 mg/dL (0.2-1); TOT PROT 6.8 g/dl (6.4-8.2)
[2022-05-04] MEDS ORDERED: PHYTONADIONE 10 MG/1 ML AMP IVPB ONE (11:56)
[2022-05-04] MEDS: KCL 10 MEQ IVPB 10 MEQ/100 ML INFUS.BAG IVPB SCH ×3 (13:52→20:50)
[2022-05-04] MEDS: D5-NS + 20 MEQ KCL - 20 MEQ/1,000 ML INFUS.BAG IV SCH (13:52)
[2022-05-04] MEDS ORDERED: PHYTONADIONE 5 MG TABLET PO ONE ×2 (14:30)
[2022-05-04] MEDS ORDERED: KCL 10 MEQ IVPB 10 MEQ/100 ML INFUS.BAG IVPB SCH (20:45)
[2022-05-05 01:09] LABS: PH,URINE 7.5 (5.0-8.0); URINE APPEARANCE CLEAR; URINE BILIRUBIN 2+ (NEGATIVE); URINE COLOR DK YELLOW; URINE GLUCOSE (UA) NEGATIVE (NEGATIVE); URINE KETONE NEGATIVE (NEGATIVE); URINE LEUK ESTERASE NEGATIVE (NEGATIVE); URINE NITRITE NEGATIVE (NEGATIVE); URINE PROTEIN NEGATIVE (NEGATIVE); URINE UROBILINOGEN 0.2 mg/dL (0.2-1.0)
[2022-05-05 09:42] LABS: EOS % 2.1 % (0-4.5); HEMATOCRIT 29.8 % (35.4-49); HEMOGLOBIN 9.8 GM/dL (11.7-16.9); LYMPH % 18.7 % (8-40); MCH 30.3 pg (25.7-33.7); MCHC 32.9 g/dl (32.0-35.9); MEAN CELL VOLUME 92.1 fl (80-96); MEAN PLT VOLUME 8.4 fl (7.5-11.1); MONO % 12.7 % (3.8-10.2); NEUT % 64.5 % (42.8-82.8); PLATELET COUNT 106 10^3/uL (134-434); RBC 3.24 M/mm3 (4.00-5.60); RDW 19.9 % (11.9-15.9); WHITE BLOOD COUNT 7.1 K/mm3 (4.0-10.0)
[2022-05-05] MEDS: MAG HYDROX/AL HYDROX/SIMETH 30 ML UNIT-DOSE CUP PO SCH ×2 (09:47→22:44)
[2022-05-05] MEDS: POTASSIUM CHLORIDE TABS 20 MEQ TABLET.ER (FP) PO SCH (09:47)
[2022-05-05 09:48] LABS: INR 1.66 (0.83-1.09); PROTHROMBIN TIME (PATIENT) 19.2 SEC (9.7-13.0)
[2022-05-05] MEDS: PANTOPRAZOLE 40 MG TABLET PO SCH (09:48)
[2022-05-05] MEDS: LORazepam 1 MG TABLET PO SCH ×2 (09:48→22:44)
[2022-05-05] MEDS: METOPROLOL TARTRATE 25 MG TABLET (FP) PO SCH (09:49)
[2022-05-05] MEDS: THIAMINE HCL 200 MG/2 ML VIAL IVPB SCH (09:49)
[2022-05-05] MEDS: POLYETHYLENE GLYCOL (HEALTHYLAX) 3350 17 GM PACKET PO SCH (09:54)
[2022-05-05 10:06] LABS: BLOOD UREA NITROGEN 3.6 mg/dL (7-18); CALCIUM 7.2 mg/dL (8.5-10.1); CREATININE 0.5 mg/dL (0.55-1.3)
[2022-05-05 10:08] LABS: BILIRUBIN,DIRECT 3.9 mg/dL (0.0-0.2); BILIRUBIN,TOTAL 4.9 mg/dL (0.2-1); TOT PROT 6.4 g/dl (6.4-8.2)
[2022-05-05] MEDS ORDERED: MIDAZOLAM HCL 2 MG/2 ML SINGLE DOSE VIAL ONE (12:32)
[2022-05-05] MEDS ORDERED: HEPARIN NA (PORCINE) 5,000 UNITS/ML 1ML VIAL SQ SCH ×2 (14:00→22:00)
[2022-05-05] MEDS: D5-NS + 20 MEQ KCL - 20 MEQ/1,000 ML INFUS.BAG IV SCH (18:20)
[2022-05-05] MEDS: ENOXAPARIN NA (PORCINE) 100 MG/1 ML DISP.SYRIN SQ SCH (18:21)
[2022-05-05] MEDS ORDERED: propRANOLol HCL 10 MG TABLET PO SCH (22:00)
[2022-05-05] MEDS ORDERED: CARVEDILOL 3.125 MG TABLET (FP) PO SCH (22:00)
[2022-05-05] MEDS: CARVEDILOL 3.125 MG TABLET (FP) PO SCH (22:44)
[2022-05-06] MEDS: ENOXAPARIN NA (PORCINE) 100 MG/1 ML DISP.SYRIN SQ SCH ×2 (05:30→16:05)
[2022-05-06 09:58] LABS: BASO % 2.8 % (0-2.0); EOS % 2.7 % (0-4.5); HEMATOCRIT 30.6 % (35.4-49); HEMOGLOBIN 9.8 GM/dL (11.7-16.9); INR 1.97 (0.83-1.09); LYMPH % 21.4 % (8-40); MCHC 32.1 g/dl (32.0-35.9); MEAN CELL VOLUME 93.6 fl (80-96); MONO % 14.1 % (3.8-10.2); PLATELET COUNT 112 10^3/uL (134-434); PROTHROMBIN TIME (PATIENT) 22.7 SEC (9.7-13.0); RBC 3.27 M/mm3 (4.00-5.60); RDW 20.2 % (11.9-15.9); WHITE BLOOD COUNT 6.8 K/mm3 (4.0-10.0)
[2022-05-06 10:17] LABS: BLOOD UREA NITROGEN 5.4 mg/dL (7-18); MAGNESIUM 1.9 mg/dL (1.8-2.4)
[2022-05-06 10:20] LABS: CREATININE 0.5 mg/dL (0.55-1.3)
[2022-05-06 10:21] LABS: BILIRUBIN,TOTAL 5.5 mg/dL (0.2-1); TOT PROT 6.5 g/dl (6.4-8.2)
[2022-05-06] MEDS ORDERED: PHYTONADIONE 5 MG TABLET PO ONE (10:37)
[2022-05-06] MEDS: LORazepam 1 MG TABLET PO SCH ×2 (10:43→22:31)
[2022-05-06] MEDS: CARVEDILOL 3.125 MG TABLET (FP) PO SCH ×2 (10:43→22:32)
[2022-05-06] MEDS: POTASSIUM CHLORIDE TABS 20 MEQ TABLET.ER (FP) PO SCH (10:43)
[2022-05-06] MEDS: PANTOPRAZOLE 40 MG TABLET PO SCH (10:44)
[2022-05-06] MEDS: MAG HYDROX/AL HYDROX/SIMETH 30 ML UNIT-DOSE CUP PO SCH (10:47)
[2022-05-06] MEDS: D5-NS + 20 MEQ KCL - 20 MEQ/1,000 ML INFUS.BAG IV SCH (16:06)
[2022-05-07] MEDS: D5-NS + 20 MEQ KCL - 20 MEQ/1,000 ML INFUS.BAG IV SCH ×2 (01:56→17:10)
[2022-05-07] MEDS: ENOXAPARIN NA (PORCINE) 100 MG/1 ML DISP.SYRIN SQ SCH ×2 (03:52→17:09)
[2022-05-07] MEDS: POTASSIUM CHLORIDE TABS 20 MEQ TABLET.ER (FP) PO SCH (09:43)
[2022-05-07] MEDS: LORazepam 1 MG TABLET PO SCH ×2 (09:44→21:39)
[2022-05-07] MEDS: CARVEDILOL 3.125 MG TABLET (FP) PO SCH ×2 (09:44→21:39)
[2022-05-07] MEDS: PANTOPRAZOLE 40 MG TABLET PO SCH (09:44)
[2022-05-07 10:05] LABS: HEMATOCRIT 36.2 % (35.4-49); HEMOGLOBIN 11.6 GM/dL (11.7-16.9); MCH 30.2 pg (25.7-33.7); MEAN CELL VOLUME 94.4 fl (80-96); MEAN PLT VOLUME 8.4 fl (7.5-11.1); PLATELET COUNT 167 10^3/uL (134-434); RBC 3.83 M/mm3 (4.00-5.60); RDW 19.9 % (11.9-15.9); WHITE BLOOD COUNT 7.1 K/mm3 (4.0-10.0)
[2022-05-07 10:10] LABS: INR 1.64 (0.83-1.09); PROTHROMBIN TIME (PATIENT) 18.9 SEC (9.7-13.0)
[2022-05-07 10:25] LABS: CALCIUM 7.4 mg/dL (8.5-10.1)
[2022-05-07 10:26] LABS: ALBUMIN 2.3 g/dl (3.4-5.0); BLOOD UREA NITROGEN 5.1 mg/dL (7-18)
[2022-05-07 10:28] LABS: CREATININE 0.7 mg/dL (0.55-1.3)
[2022-05-07 10:30] LABS: BILIRUBIN,TOTAL 6.3 mg/dL (0.2-1); TOT PROT 7.5 g/dl (6.4-8.2)
[2022-05-07 11:02] LABS: ANISOCYTOSIS 1+; MACROCYTOSIS 1+
[2022-05-08] MEDS: ENOXAPARIN NA (PORCINE) 100 MG/1 ML DISP.SYRIN SQ SCH ×2 (05:01→17:04)
[2022-05-08] MEDS: CARVEDILOL 3.125 MG TABLET (FP) PO SCH ×2 (09:51→22:58)
[2022-05-08] MEDS: LORazepam 1 MG TABLET PO SCH ×2 (09:51→22:57)
[2022-05-08] MEDS: PANTOPRAZOLE 40 MG TABLET PO SCH (09:51)
[2022-05-08] MEDS: POTASSIUM CHLORIDE TABS 20 MEQ TABLET.ER (FP) PO SCH (09:51)
[2022-05-08 11:12] LABS: BASO % 2.6 % (0-2.0); EOS % 2.4 % (0-4.5); HEMATOCRIT 32.6 % (35.4-49); HEMOGLOBIN 10.4 GM/dL (11.7-16.9); LYMPH % 21.4 % (8-40); MCH 30.3 pg (25.7-33.7); MCHC 31.9 g/dl (32.0-35.9); MEAN CELL VOLUME 95.1 fl (80-96); MONO % 14.8 % (3.8-10.2); NEUT % 58.8 % (42.8-82.8); PLATELET COUNT 141 10^3/uL (134-434); RBC 3.43 M/mm3 (4.00-5.60); RDW 20.5 % (11.9-15.9); WHITE BLOOD COUNT 6.6 K/mm3 (4.0-10.0)
[2022-05-08 11:17] LABS: INR 1.83 (0.83-1.09); PROTHROMBIN TIME (PATIENT) 21.1 SEC (9.7-13.0)
[2022-05-08 11:39] LABS: CALCIUM 7.2 mg/dL (8.5-10.1)
[2022-05-08 11:40] LABS: BLOOD UREA NITROGEN 6.3 mg/dL (7-18)
[2022-05-08 11:43] LABS: CREATININE 0.6 mg/dL (0.55-1.3)
[2022-05-08 11:44] LABS: BILIRUBIN,TOTAL 6.5 mg/dL (0.2-1); TOT PROT 6.5 g/dl (6.4-8.2)
[2022-05-08 12:10] LABS: ANISOCYTOSIS 1+; MACROCYTOSIS 1+
[2022-05-08] MEDS ORDERED: WATER IVPB ONE (14:00)
[2022-05-08] MEDS ORDERED: DEXTROSE 5% IVPB ONE (14:00)
[2022-05-08] MEDS ORDERED: ACETYLCYSTEINE IVPB ONE (14:00)
[2022-05-09] MEDS: ENOXAPARIN NA (PORCINE) 100 MG/1 ML DISP.SYRIN SQ SCH (05:45)
[2022-05-09] MEDS: CARVEDILOL 3.125 MG TABLET (FP) PO SCH (09:14)
[2022-05-09] MEDS: LORazepam 1 MG TABLET PO SCH (09:14)
[2022-05-09] MEDS: PANTOPRAZOLE 40 MG TABLET PO SCH (09:14)
[2022-05-09] MEDS: POTASSIUM CHLORIDE TABS 20 MEQ TABLET.ER (FP) PO SCH (09:14)
[2022-05-09 10:04] VITALS: RESP 18; TEMP 98.7
[2022-05-09 11:06] LABS: BASO % 2.5 % (0-2.0); HEMATOCRIT 32.3 % (35.4-49); HEMOGLOBIN 10.5 GM/dL (11.7-16.9); LYMPH % 21.9 % (8-40); MCH 30.7 pg (25.7-33.7); MCHC 32.5 g/dl (32.0-35.9); MEAN CELL VOLUME 94.5 fl (80-96); NEUT % 56.6 % (42.8-82.8); PLATELET COUNT 156 10^3/uL (134-434); RBC 3.42 M/mm3 (4.00-5.60); RDW 19.6 % (11.9-15.9); WHITE BLOOD COUNT 6.6 K/mm3 (4.0-10.0)
[2022-05-09 11:12] LABS: INR 2.07 (0.83-1.09); PROTHROMBIN TIME (PATIENT) 23.8 SEC (9.7-13.0)
[2022-05-09 11:48] LABS: CALCIUM 7.3 mg/dL (8.5-10.1)
[2022-05-09 11:51] LABS: CREATININE 0.7 mg/dL (0.55-1.3)
[2022-05-09 11:53] LABS: BILIRUBIN,TOTAL 6.5 mg/dL (0.2-1); TOT PROT 6.6 g/dl (6.4-8.2)
[2022-05-09] MEDS ORDERED: CARVEDILOL 6.25 MG TABLET (FP) PO SCH (11:55)
[2022-05-09 13:55] VITALS: BP 108/61; PULSE 101
[2022-05-09] MEDS ORDERED: APIXABAN 5 MG TABLET PO SCH (22:00)
== END 2022-05-09 15:13 | disposition home health service (06) | DRG 280 ==
LOC: JER 08:04 → JERBED 13:57 → INTOOBSV 13:57 → UNDOADMOB 13:57 → JERBED 16:59 → J5S 17:16 → JERBED 17:16 → OBSVTOIN 05-03 11:26
PROVIDERS: ADMIT Internal Medicine; ATTEND Internal Medicine
PROC: 0DJ08ZZ Inspection of Upper Intestinal Tract, Via Natural or Artificial Opening Endoscopic (ICD-10-PCS; principal; 2022-05-05 12:30)
DX: K70.11 Alcoholic hepatitis with ascites (principal); K70.31 Alcoholic cirrhosis of liver with ascites; D68.9 Coagulation defect, unspecified; I81 Portal vein thrombosis; K76.6 Portal hypertension; K85.20 Alcohol induced acute pancreatitis without necrosis or infection; I85.00 Esophageal varices without bleeding; F10.239 Alcohol dependence with withdrawal, unspecified; K31.89 Other diseases of stomach and duodenum; R19.7 Diarrhea, unspecified; R50.9 Fever, unspecified; T50.8X5A Adverse effect of diagnostic agents, initial encounter; Y92.89 Other specified places as the place of occurrence of the external cause; E66.9 Obesity, unspecified; Z68.33 Body mass index [BMI] 33.0-33.9, adult
CPT/HCPCS: 0241U-QW; 36415; 74178-TC; 74181-TC; 76705-TC; 80048; 80053; 80061; 80076; 80307; 81003; 82105; 82140; 82248; 82550; 82607; 82747; 82962; 82977; 83036; 83516; 83690; 83735; 84100; 85014; 85025; 85610; 85730; 86038; 86140; 86704; 86708; 86709; 86803; 86850; 86900; 86901; 87040; 87045; 87046; 87086; 87205; 87209; 87324; 87340; 87449; 87517; 87799; 93005; 93010; 99285-25; G0378; J1644; Q9967

== ENCOUNTER 2022-08-22 08:23 | Emergency (ER) | payer OTHER ==
[2022-08-22 08:46] VITALS: TEMP 98.7; BMI 28.8
[2022-08-22 09:29] LABS: BASO % 1.2 % (0-2.0); EOS % 1.3 % (0-4.5); HEMATOCRIT 25.2 % (35.4-49); HEMOGLOBIN 8.6 GM/dL (11.7-16.9); LYMPH % 23.4 % (8-40); MCH 30.8 pg (25.7-33.7); MEAN CELL VOLUME 90.5 fl (80-96); MEAN PLT VOLUME 7.5 fl (7.5-11.1); MONO % 7.1 % (3.8-10.2); PLATELET COUNT 74 10^3/uL (134-434); RBC 2.79 M/mm3 (4.00-5.60); RDW 20.2 % (11.9-15.9); WHITE BLOOD COUNT 10.2 K/mm3 (4.0-10.0)
[2022-08-22 09:32] VITALS: BP 126/78; PULSE 113; RESP 18
[2022-08-22 09:42] LABS: ACTIVATED PTT 46.6 SECONDS (25.2-36.5)
[2022-08-22] MEDS ORDERED: FAMOTIDINE 20 MG/50 ML IVPB 20 MG/50 ML MG IVPB ONE ×2 (09:47→09:55)
[2022-08-22 10:00] LABS: INR 2.79 (0.83-1.09)
[2022-08-22 10:01] LABS: CHLORIDE 103 mmol/L (98-107); SODIUM 136 mmol/L (136-145)
[2022-08-22 10:04] LABS: ALBUMIN 3.3 g/dl (3.4-5.0); BLOOD UREA NITROGEN 6.4 mg/dL (7-18); CALCIUM 8.8 mg/dL (8.5-10.1); CO2 23 mmol/L (21-32); GLUCOSE,RANDOM 110 mg/dL (74-106); LIPASE 109 U/L (73-393); MAGNESIUM 2.1 mg/dL (1.8-2.4)
[2022-08-22 10:07] LABS: CREATININE 0.7 mg/dL (0.55-1.3); SGOT/AST 63 U/L (15-37); SGPT/ALT 25 U/L (13-61)
[2022-08-22 10:09] LABS: BILIRUBIN,TOTAL 9.8 mg/dL (0.2-1); TOT PROT 6.6 g/dl (6.4-8.2)
[2022-08-22 10:10] LABS: ALK PHOS 156 U/L (45-117)
[2022-08-22 10:26] LABS: EPI CELLS 18 /uL (0-25.1); HYALINE CASTS 11 /uL (0-3.1); URINE APPEARANCE CLOUDY; URINE BILIRUBIN 3+ (NEGATIVE); URINE COLOR DK YELLOW; URINE GLUCOSE (UA) NEGATIVE (NEGATIVE); URINE KETONE TRACE (NEGATIVE); URINE LEUK ESTERASE 1+ (NEGATIVE); URINE NITRITE POSITIVE (NEGATIVE); URINE PROTEIN 1+ (NEGATIVE); URINE RBC 10 /uL (0-23.9); URINE WBC 34 /uL (0-25.8)
[2022-08-22 10:33] LABS: ANION GAP 10 MMOL/L (8-16); POTASSIUM 2.6 mmol/L (3.5-5.1)
[2022-08-22] MEDS ORDERED: POTASSIUM CHLORIDE ORAL LIQUID 20 MEQ/15 ML PO ONE (10:51)
[2022-08-22] MEDS ORDERED: CEFTRIAXONE 1,000 MG in DEXTROSE 5%-WATER - 50 ML IVPB ONE (10:52)
[2022-08-22 10:53] LABS: BILIRUBIN,DIRECT 5.3 mg/dL (0.0-0.2); TOTAL IRON BINDING CAPACITY 126 ug/dL (250-450)
[2022-08-22 10:54] LABS: IRON SERUM 48 ug/dL (50-175)
[2022-08-22] MEDS ORDERED: POTASSIUM CHLORIDE 10 MEQ IVPB ONE ×2 (11:10→13:52)
[2022-08-22] MEDS ORDERED: [UNRECOGNIZED DRUG - OTHER] IVPB ONE ×2 (11:10→13:52)
[2022-08-22] MEDS ORDERED: CEFTRIAXONE 1 GM/50 ML BAG ONE (11:10)
[2022-08-22] MEDS ORDERED: POTASSIUM CHLORIDE ORAL LIQUID 20 MEQ/15 ML ONE (11:10)
[2022-08-22] MEDS ORDERED: CEPHALEXIN MONOHYDRATE 500 MG CAPSULE (UD) PO ONE (12:19)
[2022-08-22] MEDS: KCL 10 MEQ IVPB 10 MEQ/100 ML INFUS.BAG IVPB SCH ×2 (12:26→14:01)
[2022-08-22] MEDS ORDERED: PANTOPRAZOLE 40 MG TABLET PO SCH (12:30)
[2022-08-22] MEDS ORDERED: SODIUM CHLORIDE 1,000 ML IV SCH (12:45)
[2022-08-22 13:42] LABS: URINE BACTERIA 74 /uL (0-1359); URINE CRYSTALS CA OXALATE MANY /hpf
== END 2022-08-22 14:53 | disposition left against medical advice (07) ==
LOC: JER 08:23
DX: R10.84 Generalized abdominal pain (principal)
CPT/HCPCS: 0241U-QW; 36415; 71045-TC-FY; 76700-TC; 80053; 81003; 82105; 82248; 82550; 82607; 82728; 82746; 82962; 83540; 83550; 83605; 83690; 83735; 84484; 85025; 85610; 85730; 87086; 87186; 93005; 93010; 99285-25